=== PATIENT | female | born 1930 | race Caucasian/White ===

== ENCOUNTER → 2019-03-12 | Outpatient (CLI) | payer MEDICARE, OTHER ==
[~2019-03-12] MED LIST: REGADENOSON 0.4 MG/5 ML SYRINGE ONE
== END | disposition home or self-care (01) ==
LOC: CFH 12:15
PROVIDERS: ATTEND Internal Medicine Cardiovascular Disease
DX: I08.3 Combined rheumatic disorders of mitral, aortic and tricuspid valves (principal); I27.20 Pulmonary hypertension, unspecified
CPT/HCPCS: 78452; 93017; 93306; A9502; J2785

== ENCOUNTER 2019-03-26 16:21 | Outpatient (CLI) | payer MEDICARE, OTHER ==
[2019-03-26] MEDS ORDERED: METO25TA91 PO (17:06)
[2019-03-26] MEDS ORDERED: RIVA15TA PO (17:06)
[2019-03-26] MEDS ORDERED: BIOT25005 PO (17:06)
[2019-03-26] MEDS ORDERED: LOSA1TAB25 PO (17:06)
[2019-03-26] MEDS ORDERED: ASPI-496 PO (17:06)
[2019-03-26] MEDS ORDERED: CHOL10003 PO (17:06)
[2019-03-26] MEDS ORDERED: VIT1CAPS42 PO (17:06)
[2019-03-26] MEDS ORDERED: CITA10TA8 PO (17:06)
[2019-03-26] MEDS ORDERED: CALC-126 PO (17:06)
[2019-03-26 17:26] LABS: ALBUMIN 3.7 g/dL (3.4-5.0); ANION GAP 8 mmol/L (5-15); CALCIUM 9.4 mg/dL (8.5-10.1); CHLORIDE 106 mmol/L (98-107)
[2019-03-26 17:31] LABS: ALANINE AMINOTRANSFERASE 23 U/L (12-78); ALKALINE PHOSPHATASE 86 U/L (45-117); BILIRUBIN,TOTAL 0.9 mg/dL (0.2-1.0); CREATININE 1.28 mg/dL (0.55-1.02); TOTAL PROTEIN 6.8 g/dL (6.4-8.2)
[2019-03-26 17:46] LABS: BASOPHILS # (AUTO) 0.02 x10^3/uL (0-0.1); BASOPHILS % (AUTO) 0 % (0-1); EOSINOPHILS # (AUTO) 0.08 x10^3/uL (0-0.4); EOSINOPHILS % (AUTO) 2 % (1-7); LYMPHOCYTES # (AUTO) 1.38 x10^3/uL (1-3.4); LYMPHOCYTES % (AUTO) 29 % (22-44); MD NO; MEAN CORPUSCULAR HEMOGLOBIN 34.3 pg (27.0-34.8); MEAN CORPUSCULAR HGB CONC 33.1 g/dL (32.4-35.8); MEAN CORPUSCULAR VOLUME 103.8 fL (80-100); MEAN PLATELET VOLUME 9.7 fL (7.4-10.4); MONOCYTES # (AUTO) 0.71 x10^3/uL (0.2-0.8); MONOCYTES % (AUTO) 15 % (2-9); NEUTROPHILS # (AUTO) 2.53 x10^3/uL (1.8-6.8); NEUTROPHILS % (AUTO) 54 % (42-75); PLATELET COUNT 214 x10^3/uL (130-400); RED BLOOD COUNT 3.72 x10^6/uL (3.82-5.3); RED CELL DISTRIBUTION WIDTH 13.7 % (9.6-15.2)
== END 2019-03-26 23:59 | disposition home or self-care (01) ==
LOC: STAR 16:21
PROVIDERS: ATTEND Internal Medicine Cardiovascular Disease
DX: R91.8 Other nonspecific abnormal finding of lung field (principal); E78.00 Pure hypercholesterolemia, unspecified; I10 Essential (primary) hypertension; I48.4 Atypical atrial flutter; R06.02 Shortness of breath; R42 Dizziness and giddiness
CPT/HCPCS: 36415; 71046; 80053; 85025

== ENCOUNTER 2019-04-01 09:11 | Observation (INO) | payer MEDICARE, OTHER ==
[2019-03-26 17:06] VITALS: BP 157/64
[~2019-04-01] VITALS: Ht 162.6 cm; Wt 74.2 kg
[~2019-04-01 09:11] MED LIST changes: +ASPI-496 PO; +BIOT25005 PO; +CALC-126 PO; +CHOL10003 PO; +CITA10TA8 PO; +LOSA1TAB25 PO; +METO25TA91 PO; -REGADENOSON 0.4 MG/5 ML SYRINGE ONE; +RIVA15TA PO; +VIT1CAPS42 PO
[2019-04-01] MEDS: SODIUM CHLORIDE 0.9% 1,000 ML IV SCH ×2 (09:30→17:30)
[2019-04-01] MEDS ORDERED: CEFAZOLIN PMX 1GM/50ML 50 ML IVPB ONE (09:30)
[2019-04-01] MEDS ORDERED: CEFAZOLIN PMX 1GM/50ML 50 ML ONE (10:14)
[2019-04-01] MEDS ORDERED: FENTANYL PF 100 MCG/2ML ONE (10:14)
[2019-04-01] MEDS ORDERED: MIDAZOLAM 1 MG/ML, 2ML ONE (10:14)
[2019-04-01] MEDS ORDERED: LIDOCAINE 2%, 20ML ONE (10:14)
[2019-04-01] MEDS ORDERED: CEFAZOLIN 1,000 MG ONE (10:14)
[2019-04-01] MEDS ORDERED: CEFAZOLIN PMX 1GM/50ML 50 ML IVPB SCH (11:30)
[2019-04-01] MEDS ORDERED: HOLD MEDICATION MC PRN (11:30)
[2019-04-01] MEDS ORDERED: ONDANSETRON 2MG/ML, 2ML ONE (11:31)
[2019-04-01] MEDS ORDERED: ONDANSETRON 2MG/ML, 2ML IVPush PRN (12:00)
[2019-04-01 16:57] VITALS: BP 102/58
[2019-04-01] MEDS: ACETAMINOPHEN 325 MG TABLET PO PRN ×2 (18:18→22:12)
[2019-04-01] MEDS: CEFAZOLIN PMX 1GM/50ML 50 ML IVPB SCH (18:18)
[2019-04-01 19:51] VITALS: BP 110/65
[2019-04-01] MEDS: CALCIUM/VITAMIN D3 250-125 TABLET PO SCH (19:57)
[2019-04-01] MEDS: SODIUM CHLORIDE FLUSH 10ML SYR IVF SCH (19:58)
[2019-04-02] MEDS: CEFAZOLIN PMX 1GM/50ML 50 ML IVPB SCH (01:58)
[2019-04-02 02:02] VITALS: BP 123/71
[2019-04-02] MEDS ORDERED: ACET325T14 PO (08:26)
[2019-04-02 08:35] VITALS: BP 147/79
[2019-04-02] MEDS ORDERED: MULTIVITS,STRESS FORMULA 1 TABLET PO SCH (09:00)
[2019-04-02] MEDS ORDERED: ASPIRIN 81 MG TABLET EC PO SCH (09:00)
[2019-04-02] MEDS ORDERED: TEMPLATE NON-FORMULARY MED. (Biotin** 5,000 MG) PO SCH (09:00)
[2019-04-02] MEDS ORDERED: METOPROLOL SUCCINATE 25 MG TAB.ER.24H PO SCH (09:00)
[2019-04-02] MEDS ORDERED: HYDROCHLOROTHIAZIDE 12.5 MG CAPSULE PO SCH (09:00)
[2019-04-02] MEDS ORDERED: LOSARTAN 50MG TABLET PO SCH (09:00)
[2019-04-02] MEDS ORDERED: CITALOPRAM 10 MG TABLET PO SCH (09:00)
[2019-04-02] MEDS ORDERED: CHOLECALCIFEROL 1,000 UNIT TABLET PO SCH (09:00)
[2019-04-02] MEDS: CALCIUM/VITAMIN D3 250-125 TABLET PO SCH (09:01)
[2019-04-02] MEDS: SODIUM CHLORIDE FLUSH 10ML SYR IVF SCH (09:02)
== END 2019-04-02 13:01 | disposition home or self-care (01) ==
LOC: CACL 09:11 → 5SO 16:10 → INTOOBSV 22:11 → DCLOUNGE 04-02 12:23
PROVIDERS: ADMIT Internal Medicine Cardiovascular Disease; ATTEND Internal Medicine Cardiovascular Disease
DX: I48.4 Atypical atrial flutter (principal); I49.5 Sick sinus syndrome; E78.5 Hyperlipidemia, unspecified; I12.9 Hypertensive chronic kidney disease with stage 1 through stage 4 chronic kidney disease, or unspecified chronic kidney disease; N18.2 Chronic kidney disease, stage 2 (mild); Z79.82 Long term (current) use of aspirin; Z79.899 Other long term (current) drug therapy
CPT/HCPCS: 33208; 71045; 96365; 96366; 96375; 99156; 99157; C1779; C1785; C1892; G0378; J0690; J2250; J2405; J3010; J3490

== ENCOUNTER 2019-08-21 13:47 | Inpatient (IN) | payer MEDICARE, OTHER ==
[~2019-08-21] VITALS: Ht 165.1 cm; Wt 81.6 kg
[~2019-08-21 13:47] MED LIST changes: +ACET325T14 PO
--- NOTE | 2019-08-21 13:49 | NUR ---
NIL AT 1349
--- NOTE | 2019-08-21 13:50 | NUR ---
TASK RN: PT CINDI CAMARILLO AFTER PT STATES SHE GOT DIZZY AND LAID DOWN ON HER BATHROOM FLOOR. FROM THERE PT ATTEMPTED TO CRAWL TO HER BED THEN TRIED TO STAND AGAIN FROM HER KNEES AND TWISTED R ANKLE IN THE PROCESS OF STANDING. PT RESTING ON GURNEY. NADN. MONITORS APPLIED. EKG COMPLETED. NADN. VSS. PRIMARY RN AT BEDSIDE FOR REPORT.
[2019-08-21] MEDS ORDERED: HYDROmorphone 1 MG/ML, 1ML VIAL ONE (14:25)
[2019-08-21] MEDS ORDERED: ONDANSETRON 2MG/ML, 2ML ONE (14:25)
[2019-08-21] MEDS ORDERED: PROPOFOL 10 MG/ML, 20ML IVPush ONE (14:30)
[2019-08-21] MEDS ORDERED: SODIUM CHLORIDE FLUSH 10ML SYR IVF ONE (14:30)
[2019-08-21] MEDS ORDERED: HYDROmorphone 1 MG/ML, 1ML INJ IVPush PRN (14:30)
[2019-08-21] MEDS ORDERED: ONDANSETRON 2MG/ML, 2ML IVPush ONE (14:30)
[2019-08-21 14:54] LABS: MEAN CORPUSCULAR HEMOGLOBIN 34.4 pg (27.0-34.8); MEAN CORPUSCULAR HGB CONC 32.9 g/dL (32.4-35.8); MEAN CORPUSCULAR VOLUME 104.6 fL (80-100); MEAN PLATELET VOLUME 8.7 fL (7.4-10.4); PLATELET COUNT 213 x10^3/uL (130-400); RED BLOOD COUNT 3.49 x10^6/uL (3.82-5.3); RED CELL DISTRIBUTION WIDTH 14.2 % (9.6-15.2)
[2019-08-21 14:56] LABS: ALANINE AMINOTRANSFERASE 21 U/L (12-78); ALBUMIN 3.4 g/dL (3.4-5.0); ANION GAP 5 mmol/L (5-15); CHLORIDE 109 mmol/L (98-107); CREATININE 1.31 mg/dL (0.55-1.02)
--- NOTE | 2019-08-21 14:58 | NUR ---
PT WITH SUCCESSFUL REDUCTION WITH PROCEDURAL SEDATION. NOTES COMPLETED ON WHO/SEDATION FORM, SEE NOTES FOR DETAILS
[2019-08-21 15:01] LABS: ALKALINE PHOSPHATASE 94 U/L (45-117); BILIRUBIN,TOTAL 0.4 mg/dL (0.2-1.0); TOTAL PROTEIN 6.4 g/dL (6.4-8.2); TROPONIN I < 0.015 ng/mL (0.000-0.045)
[2019-08-21 15:05] LABS: INTERNATIONAL NORMALIZED RATIO 1.01 (0.93-1.1); PROTHROMBIN TIME 10.6 Seconds (9.6-11.5)
[2019-08-21 15:17] LABS: BASOPHILS % (AUTO) 0 % (0-1); EOSINOPHILS # (AUTO) 0.23 x10^3/uL (0-0.4); EOSINOPHILS % (AUTO) 3 % (1-7); LYMPHOCYTES # (AUTO) 0.55 x10^3/uL (1-3.4); LYMPHOCYTES % (AUTO) 7 % (22-44); MD SCAN; MONOCYTES # (AUTO) 0.68 x10^3/uL (0.2-0.8); MONOCYTES % (AUTO) 9 % (2-9); NEUTROPHILS # (AUTO) 6.44 x10^3/uL (1.8-6.8); NEUTROPHILS % (AUTO) 82 % (42-75)
--- NOTE | 2019-08-21 15:55 | NUR ---
REPORT GIVEN TO DAYA RANDOLPH. SPOKE WITH DAUGHTERS TARUN AND LAVINIA WALLIS WHO ARE CURRENTLY IN [place] ON VACATION, THEY WERE UDATED ON PT STATUS. KOMAL NUMBER IS [phone]. SHE WOULD LIKE TO BE UPDATED ON ANY CHANGE OF STATUS
[2019-08-21] MEDS ORDERED: MIDAZOLAM 1 MG/ML, 2ML ONE (16:34)
[2019-08-21 17:00] VITALS: BP 147/73
[2019-08-21] MEDS: SODIUM CHLORIDE 0.9% 1,000 ML IV SCH (18:19)
[2019-08-21] MEDS ORDERED: POLYETHYLENE GLYCOL 17 GM PACKET PO PRN (18:30)
[2019-08-21] MEDS ORDERED: ONDANSETRON 2MG/ML, 2ML IVPush PRN (18:30)
[2019-08-21] MEDS ORDERED: hydrALAzine 20 MG/ML, 1ML IVPush PRN (18:30)
[2019-08-21] MEDS ORDERED: PROMETHAZINE 25 MG/ML, 1ML IM PRN (18:30)
[2019-08-21] MEDS ORDERED: morphine SULFATE 10 MG/ML, 1ML IVPush PRN (18:30)
[2019-08-21] MEDS ORDERED: BISACODYL 10 MG SUPP PR PRN (18:30)
[2019-08-21] MEDS ORDERED: ONDANSETRON ODT 4 MG PO PRN (18:30)
[2019-08-21 18:39] LABS: HEMOGLOBIN A1C 5.7 % (4.2-6.3)
[2019-08-21 18:41] LABS: FREE T4 (FREE THYROXINE) 0.78 ng/dL (0.76-1.46)
[2019-08-21 19:11] VITALS: BP 132/75
[2019-08-21] MEDS ORDERED: FENTANYL PF 250 MCG/5ML ONE (20:56)
[2019-08-21] MEDS: OXYcodone IR 5MG TABLET PO PRN (21:42)
[2019-08-22 00:19] VITALS: BP 143/78
[2019-08-22 01:54] VITALS: BP 157/96
[2019-08-22] MEDS: SODIUM CHLORIDE 0.9% 1,000 ML IV SCH (04:03)
[2019-08-22 05:45] LABS: BASOPHILS % (AUTO) 0 % (0-1); EOSINOPHILS # (AUTO) 0.08 x10^3/uL (0-0.4); EOSINOPHILS % (AUTO) 1 % (1-7); LYMPHOCYTES # (AUTO) 0.88 x10^3/uL (1-3.4); LYMPHOCYTES % (AUTO) 13 % (22-44); MD NO; MEAN CORPUSCULAR HEMOGLOBIN 35.1 pg (27.0-34.8); MEAN CORPUSCULAR HGB CONC 33.6 g/dL (32.4-35.8); MEAN CORPUSCULAR VOLUME 104.6 fL (80-100); MEAN PLATELET VOLUME 8.5 fL (7.4-10.4); MONOCYTES # (AUTO) 1.04 x10^3/uL (0.2-0.8); MONOCYTES % (AUTO) 15 % (2-9); NEUTROPHILS # (AUTO) 4.88 x10^3/uL (1.8-6.8); NEUTROPHILS % (AUTO) 71 % (42-75); PLATELET COUNT 182 x10^3/uL (130-400); RED BLOOD COUNT 2.93 x10^6/uL (3.82-5.3); RED CELL DISTRIBUTION WIDTH 13.8 % (9.6-15.2)
[2019-08-22 05:56] LABS: ANION GAP 5 mmol/L (5-15); CALCIUM 8.3 mg/dL (8.5-10.1); CHLORIDE 111 mmol/L (98-107)
[2019-08-22 06:00] LABS: ALANINE AMINOTRANSFERASE 16 U/L (12-78); ALKALINE PHOSPHATASE 82 U/L (45-117); BILIRUBIN,TOTAL 0.5 mg/dL (0.2-1.0); CHOL/HDL RATIO 3.2; CHOLESTEROL, TOTAL 204 mg/dL (140-239); CREATININE 1.26 mg/dL (0.55-1.02); HDL CHOL % 31 % (28-40); HDL CHOLESTEROL (DIRECT) 64 mg/dL (40-60); LDL CHOLESTEROL,CALCULATED 123 mg/dL (54-169); LDL/HDL RATIO 1.9 (0.5-3.0); TOTAL PROTEIN 5.5 g/dL (6.4-8.2); TRIGLYCERIDES 84 mg/dL (50-200); VLDL CHOLESTEROL 17 mg/dL (0-25)
[2019-08-22 07:57] LABS: MICROSCOPIC AUTO
[2019-08-22 08:01] VITALS: BP 146/76
[2019-08-22 08:03] LABS: CULTURE INDICATED? NO
[2019-08-22] MEDS: OXYcodone IR 5MG TABLET PO PRN ×2 (08:36→21:38)
[2019-08-22] MEDS ORDERED: TEMPLATE NON-FORMULARY MED. (Vit C/E/Zn/Coppr/Lutein/Zeaxan** (Preservision Areds 2 Softge PO SCH (09:30)
[2019-08-22] MEDS ORDERED: HYDROCHLOROTHIAZIDE 12.5 MG CAPSULE PO SCH (09:30)
[2019-08-22] MEDS ORDERED: HEPARIN 5,000 UNITS/ML, 1ML SQ ONE (09:30)
[2019-08-22] MEDS ORDERED: ACETAMINOPHEN 325 MG TABLET PO PRN (09:30)
[2019-08-22] MEDS ORDERED: LOSARTAN 50MG TABLET PO SCH (09:30)
[2019-08-22 10:00] VITALS: BP 132/75
[2019-08-22] MEDS: SENNA/DOCUSATE TABLET PO SCH (10:11)
[2019-08-22] MEDS: CALCIUM/VITAMIN D3 250-125 TABLET PO SCH ×2 (10:11→21:13)
[2019-08-22] MEDS: CITALOPRAM 10 MG TABLET PO SCH (10:12)
[2019-08-22] MEDS: METOPROLOL SUCCINATE 25 MG TAB.ER.24H PO SCH (10:12)
[2019-08-22] MEDS: ASPIRIN 81 MG TABLET EC PO SCH (10:12)
[2019-08-22] MEDS: CHOLECALCIFEROL 1,000 UNIT TABLET PO SCH (10:12)
[2019-08-22] MEDS: CEFTRIAXONE PMX 2GM/50ML 50 ML IV SCH (10:36)
[2019-08-22] MEDS: DOXYCYCLINE 100 MG in DEXTROSE 5% 250 ML IV SCH ×2 (11:33→23:54)
[2019-08-22 13:33] VITALS: BP 105/58
[2019-08-22 18:41] VITALS: BP 154/70
[2019-08-23 01:42] VITALS: BP 115/68
[2019-08-23 06:03] LABS: BASOPHILS # (AUTO) 0.01 x10^3/uL (0-0.1); BASOPHILS % (AUTO) 0 % (0-1); EOSINOPHILS # (AUTO) 0.04 x10^3/uL (0-0.4); EOSINOPHILS % (AUTO) 1 % (1-7); LYMPHOCYTES # (AUTO) 0.81 x10^3/uL (1-3.4); LYMPHOCYTES % (AUTO) 16 % (22-44); MD NO; MEAN CORPUSCULAR HEMOGLOBIN 34.9 pg (27.0-34.8); MEAN CORPUSCULAR VOLUME 102.7 fL (80-100); MEAN PLATELET VOLUME 8.1 fL (7.4-10.4); MONOCYTES # (AUTO) 0.71 x10^3/uL (0.2-0.8); MONOCYTES % (AUTO) 14 % (2-9); NEUTROPHILS # (AUTO) 3.51 x10^3/uL (1.8-6.8); NEUTROPHILS % (AUTO) 69 % (42-75); PLATELET COUNT 164 x10^3/uL (130-400); RED BLOOD COUNT 2.91 x10^6/uL (3.82-5.3); RED CELL DISTRIBUTION WIDTH 13.9 % (9.6-15.2)
[2019-08-23 06:11] LABS: ANION GAP 4 mmol/L (5-15); CALCIUM 8.8 mg/dL (8.5-10.1); CHLORIDE 109 mmol/L (98-107); CREATININE 1.13 mg/dL (0.55-1.02)
[2019-08-23 09:00] VITALS: BP 151/73
[2019-08-23] MEDS: CITALOPRAM 10 MG TABLET PO SCH (09:15)
[2019-08-23] MEDS: ASPIRIN 81 MG TABLET EC PO SCH (09:16)
[2019-08-23] MEDS: METOPROLOL SUCCINATE 25 MG TAB.ER.24H PO SCH (09:16)
[2019-08-23] MEDS: CALCIUM/VITAMIN D3 250-125 TABLET PO SCH ×2 (09:17→20:59)
[2019-08-23] MEDS: LOSARTAN 50MG TABLET PO SCH (09:17)
[2019-08-23] MEDS: CHOLECALCIFEROL 1,000 UNIT TABLET PO SCH (09:17)
[2019-08-23] MEDS: SENNA/DOCUSATE TABLET PO SCH (09:18)
[2019-08-23] MEDS: CEFTRIAXONE PMX 2GM/50ML 50 ML IV SCH (09:18)
[2019-08-23] MEDS ORDERED: FENTANYL PF 100 MCG/2ML ONE (11:07)
[2019-08-23] MEDS ORDERED: MIDAZOLAM 1 MG/ML, 2ML ONE (11:07)
[2019-08-23] MEDS ORDERED: METOPROLOL 1 MG/ML, 5ML IV PRN (11:30)
[2019-08-23] MEDS ORDERED: PROMETHAZINE 25 MG/ML, 1ML IV PRN (11:30)
[2019-08-23] MEDS ORDERED: MEPERIDINE/PF 25MG/ML,1ML IVPush PRN (11:30)
[2019-08-23] MEDS ORDERED: OXYcodone 5 MG/5 ML ORAL.SOL UDC PO PRN (11:30)
[2019-08-23] MEDS ORDERED: hydrALAzine 20 MG/ML, 1ML IV PRN (11:30)
[2019-08-23] MEDS ORDERED: ACETAMINOPHEN 325 MG TABLET PO PRN (11:30)
[2019-08-23] MEDS ORDERED: MIDAZOLAM 1 MG/ML, 2ML IV PRN (11:30)
[2019-08-23] MEDS ORDERED: FENTANYL PF 100 MCG/2ML IV PRN (11:30)
[2019-08-23] MEDS ORDERED: ALBUTEROL/IPRATROPIUM 2.5MG/0.5MG, 3 ML NPPB PRN (11:30)
[2019-08-23] MEDS ORDERED: PHENYLEPHRINE 10 MG/ML ONE (11:45)
[2019-08-23] MEDS ORDERED: BUPIVACAINE/PF 0.25% ONE (12:19)
[2019-08-23] MEDS ORDERED: LIDOCAINE-MPF 2% ,5ML ONE (12:19)
[2019-08-23] MEDS ORDERED: DEXAMETHASONE 4 MG/ML, 1ML ONE (12:19)
[2019-08-23] MEDS ORDERED: BUPIVACAINE/PF 0.5% ONE (12:19)
[2019-08-23] MEDS ORDERED: PROPOFOL 10 MG/ML, 20ML ONE (12:19)
[2019-08-23] MEDS ORDERED: ONDANSETRON 2MG/ML, 2ML ONE (12:19)
[2019-08-23] MEDS: DOXYCYCLINE 100 MG in DEXTROSE 5% 250 ML IV SCH (14:05)
[2019-08-23 14:27] VITALS: BP 151/75
[2019-08-23] MEDS: CEFAZOLIN PMX 1GM/50ML 50 ML IV SCH (17:01)
[2019-08-23 18:51] VITALS: BP 133/75
[2019-08-24] MEDS: CEFAZOLIN PMX 1GM/50ML 50 ML IV SCH ×2 (01:12→08:32)
[2019-08-24 01:17] VITALS: BP 151/74
[2019-08-24] MEDS: DOXYCYCLINE 100 MG in DEXTROSE 5% 250 ML IV SCH ×2 (02:09→14:10)
[2019-08-24 05:16] LABS: BASOPHILS # (AUTO) 0.02 x10^3/uL (0-0.1); BASOPHILS % (AUTO) 0 % (0-1); EOSINOPHILS % (AUTO) 0 % (1-7); LYMPHOCYTES # (AUTO) 0.64 x10^3/uL (1-3.4); LYMPHOCYTES % (AUTO) 9 % (22-44); MD NO; MEAN CORPUSCULAR HEMOGLOBIN 34.3 pg (27.0-34.8); MEAN CORPUSCULAR HGB CONC 33.6 g/dL (32.4-35.8); MEAN CORPUSCULAR VOLUME 102.2 fL (80-100); MEAN PLATELET VOLUME 8.7 fL (7.4-10.4); MONOCYTES # (AUTO) 0.82 x10^3/uL (0.2-0.8); MONOCYTES % (AUTO) 12 % (2-9); NEUTROPHILS % (AUTO) 79 % (42-75); PLATELET COUNT 152 x10^3/uL (130-400); RED BLOOD COUNT 2.96 x10^6/uL (3.82-5.3); RED CELL DISTRIBUTION WIDTH 13.6 % (9.6-15.2)
[2019-08-24 05:17] LABS: ANION GAP 5 mmol/L (5-15); CALCIUM 8.8 mg/dL (8.5-10.1); CHLORIDE 107 mmol/L (98-107); CREATININE 1.16 mg/dL (0.55-1.02)
[2019-08-24 08:05] VITALS: BP 158/75
[2019-08-24] MEDS: CITALOPRAM 10 MG TABLET PO SCH (08:33)
[2019-08-24] MEDS: CALCIUM/VITAMIN D3 250-125 TABLET PO SCH ×2 (08:34→19:47)
[2019-08-24] MEDS: SENNA/DOCUSATE TABLET PO SCH (08:34)
[2019-08-24] MEDS: ASPIRIN 81 MG TABLET EC PO SCH (08:34)
[2019-08-24] MEDS: LOSARTAN 50MG TABLET PO SCH (08:34)
[2019-08-24] MEDS: CHOLECALCIFEROL 1,000 UNIT TABLET PO SCH (08:35)
[2019-08-24] MEDS: METOPROLOL SUCCINATE 25 MG TAB.ER.24H PO SCH (08:35)
[2019-08-24] MEDS: OXYcodone IR 5MG TABLET PO PRN (08:35)
[2019-08-24] MEDS: CEFTRIAXONE PMX 2GM/50ML 50 ML IV SCH (10:20)
[2019-08-24 14:50] VITALS: BP 131/68
[2019-08-24 18:33] VITALS: BP 121/71
[2019-08-24] MEDS: HEPARIN 5,000 UNITS/ML, 1ML SQ SCH (22:37)
[2019-08-25 00:19] VITALS: BP 124/72
[2019-08-25] MEDS: DOXYCYCLINE 100 MG in DEXTROSE 5% 250 ML IV SCH ×2 (02:09→14:12)
[2019-08-25 05:32] LABS: BASOPHILS # (AUTO) 0.02 x10^3/uL (0-0.1); BASOPHILS % (AUTO) 0 % (0-1); EOSINOPHILS # (AUTO) 0.07 x10^3/uL (0-0.4); EOSINOPHILS % (AUTO) 1 % (1-7); LYMPHOCYTES # (AUTO) 1.16 x10^3/uL (1-3.4); LYMPHOCYTES % (AUTO) 20 % (22-44); MD NO; MEAN CORPUSCULAR HGB CONC 33.7 g/dL (32.4-35.8); MEAN CORPUSCULAR VOLUME 103.9 fL (80-100); MEAN PLATELET VOLUME 8.9 fL (7.4-10.4); MONOCYTES # (AUTO) 0.74 x10^3/uL (0.2-0.8); MONOCYTES % (AUTO) 13 % (2-9); NEUTROPHILS # (AUTO) 3.88 x10^3/uL (1.8-6.8); NEUTROPHILS % (AUTO) 66 % (42-75); PLATELET COUNT 157 x10^3/uL (130-400); RED BLOOD COUNT 2.91 x10^6/uL (3.82-5.3); RED CELL DISTRIBUTION WIDTH 13.6 % (9.6-15.2)
[2019-08-25 05:46] LABS: ANION GAP 5 mmol/L (5-15); CALCIUM 8.7 mg/dL (8.5-10.1); CHLORIDE 107 mmol/L (98-107)
[2019-08-25] MEDS: OXYcodone IR 5MG TABLET PO PRN ×3 (05:47→19:34)
[2019-08-25] MEDS: HEPARIN 5,000 UNITS/ML, 1ML SQ SCH ×3 (05:47→23:34)
[2019-08-25 08:37] VITALS: BP 144/67
[2019-08-25] MEDS: CHOLECALCIFEROL 1,000 UNIT TABLET PO SCH (09:27)
[2019-08-25] MEDS: SENNA/DOCUSATE TABLET PO SCH (09:27)
[2019-08-25] MEDS: ASPIRIN 81 MG TABLET EC PO SCH (09:27)
[2019-08-25] MEDS: ACETAMINOPHEN 325 MG TABLET PO PRN ×2 (09:28→19:33)
[2019-08-25] MEDS: LOSARTAN 50MG TABLET PO SCH (09:28)
[2019-08-25] MEDS: CITALOPRAM 10 MG TABLET PO SCH (09:28)
[2019-08-25] MEDS: METOPROLOL SUCCINATE 25 MG TAB.ER.24H PO SCH (09:28)
[2019-08-25] MEDS: CEFTRIAXONE PMX 2GM/50ML 50 ML IV SCH (09:28)
[2019-08-25] MEDS: CALCIUM/VITAMIN D3 250-125 TABLET PO SCH ×2 (09:28→19:34)
[2019-08-25 13:14] VITALS: BP 104/61
[2019-08-25] MEDS ORDERED: INSTRUCTION SEE COMMENTS XX PRN (15:30)
[2019-08-25] MEDS ORDERED: PHARMACY INSTRUCTION MC PRN (15:30)
[2019-08-25 20:54] VITALS: BP 132/74
[2019-08-25] MEDS ORDERED: MELATONIN 3 MG TABLET PO SCH (21:00)
[2019-08-26] MEDS: DOXYCYCLINE 100 MG in DEXTROSE 5% 250 ML IV SCH ×2 (01:51→14:34)
[2019-08-26 01:59] VITALS: BP 154/83
[2019-08-26 05:27] LABS: BASOPHILS # (AUTO) 0.02 x10^3/uL (0-0.1); BASOPHILS % (AUTO) 1 % (0-1); EOSINOPHILS % (AUTO) 3 % (1-7); LYMPHOCYTES # (AUTO) 0.78 x10^3/uL (1-3.4); LYMPHOCYTES % (AUTO) 20 % (22-44); MD NO; MEAN CORPUSCULAR HGB CONC 33.7 g/dL (32.4-35.8); MEAN CORPUSCULAR VOLUME 103.9 fL (80-100); MEAN PLATELET VOLUME 9.3 fL (7.4-10.4); MONOCYTES # (AUTO) 0.59 x10^3/uL (0.2-0.8); MONOCYTES % (AUTO) 15 % (2-9); NEUTROPHILS # (AUTO) 2.49 x10^3/uL (1.8-6.8); NEUTROPHILS % (AUTO) 63 % (42-75); PLATELET COUNT 161 x10^3/uL (130-400); RED BLOOD COUNT 2.95 x10^6/uL (3.82-5.3); RED CELL DISTRIBUTION WIDTH 13.9 % (9.6-15.2)
[2019-08-26 05:29] LABS: ANION GAP 6 mmol/L (5-15); CALCIUM 8.7 mg/dL (8.5-10.1); CHLORIDE 106 mmol/L (98-107); CREATININE 1.27 mg/dL (0.55-1.02)
[2019-08-26] MEDS: HEPARIN 5,000 UNITS/ML, 1ML SQ SCH (08:03)
[2019-08-26] MEDS: CITALOPRAM 10 MG TABLET PO SCH (08:04)
[2019-08-26] MEDS: CALCIUM/VITAMIN D3 250-125 TABLET PO SCH (08:04)
[2019-08-26] MEDS: CHOLECALCIFEROL 1,000 UNIT TABLET PO SCH (08:04)
[2019-08-26] MEDS: SENNA/DOCUSATE TABLET PO SCH (08:04)
[2019-08-26 08:05] VITALS: BP 166/83
[2019-08-26] MEDS: ASPIRIN 81 MG TABLET EC PO SCH (08:05)
[2019-08-26] MEDS ORDERED: METOPROLOL SUCCINATE 25 MG TAB.ER.24H PO SCH (09:00)
[2019-08-26] MEDS ORDERED: LOSARTAN 50MG TABLET PO SCH (09:00)
[2019-08-26] MEDS: CEFTRIAXONE PMX 2GM/50ML 50 ML IV SCH (09:42)
[2019-08-26] MEDS ORDERED: DOXY100T PO (12:04)
[2019-08-26] MEDS ORDERED: CEFD300C37 PO (12:04)
[2019-08-26] MEDS ORDERED: LOSA50TA2 PO (12:04)
[2019-08-26 14:49] VITALS: BP 146/74
== END 2019-08-26 15:37 | DRG 492 ==
LOC: ED 14:50 → EDIP 16:02 → 4WST 16:48
PROVIDERS: ADMIT Internal Medicine; ATTEND Internal Medicine
PROC: 0SSFXZZ Reposition Right Ankle Joint, External Approach (ICD-10-PCS; 2019-08-21)
PROC: 0QSG04Z Reposition Right Tibia with Internal Fixation Device, Open Approach (ICD-10-PCS; 2019-08-23)
PROC: 0SSF0ZZ Reposition Right Ankle Joint, Open Approach (ICD-10-PCS; 2019-08-23)
PROC: 3E0T3BZ Introduction of Anesthetic Agent into Peripheral Nerves and Plexi, Percutaneous Approach (ICD-10-PCS; 2019-08-23)
PROC: 0QSJ04Z Reposition Right Fibula with Internal Fixation Device, Open Approach (ICD-10-PCS; principal; 2019-08-23 12:15)
DX: S82.851A Displaced trimalleolar fracture of right lower leg, initial encounter for closed fracture (principal); N17.0 Acute kidney failure with tubular necrosis; J18.9 Pneumonia, unspecified organism; G93.89 Other specified disorders of brain; I12.9 Hypertensive chronic kidney disease with stage 1 through stage 4 chronic kidney disease, or unspecified chronic kidney disease; I27.20 Pulmonary hypertension, unspecified; I34.0 Nonrheumatic mitral (valve) insufficiency; I10 Essential (primary) hypertension; G90.8 Other disorders of autonomic nervous system; N18.9 Chronic kidney disease, unspecified; Z96.641 Presence of right artificial hip joint; W18.39XA Other fall on same level, initial encounter; Y93.89 Activity, other specified; Y92.89 Other specified places as the place of occurrence of the external cause; Z95.0 Presence of cardiac pacemaker; Y99.8 Other external cause status
CPT/HCPCS: 36415; 70450; 71045; 76000; 80048; 80053; 80061; 81001; 82607; 83036; 83605; 83735; 84145; 84439; 84443; 84484; 85025; 85610; 93005; 99285; C1713; G0378; J0690; J0696; J1100; J1170; J1644; J2250; J2405; J2704; J3010; J3490; J7060; J2270; J2370; J7030